=== PATIENT | male | born 1960 | race Caucasian/White ===

== ENCOUNTER 2024-01-11 07:25 | Day surgery (SDC) | payer OTHER ==
[~2024-01-11 07:25] MED LIST: Sodium Chloride 0.9% 10 ML Syringe FLUSH PRN; Sodium Chloride 0.9% 10 ML Syringe FLUSH SCH
[2024-01-11] MEDS ORDERED: ceFAZolin 2 GM Vial ONE (07:32)
[2024-01-11] MEDS ORDERED: fentaNYL 100 MCG/2 ML SDV ONE (07:32)
[2024-01-11] MEDS ORDERED: Ondansetron 4 MG/2 ML SDV ONE (07:32)
[2024-01-11] MEDS ORDERED: Ketorolac 30 MG/ML SDV ONE (07:32)
[2024-01-11] MEDS ORDERED: Propofol 200 MG/20 ML SDV ONE (07:32)
[2024-01-11] MEDS ORDERED: Lactated Ringers 1,000 ML ONE (07:32)
[2024-01-11] MEDS ORDERED: Midazolam 1 MG/ML 2 ML SDV ONE (07:32)
[2024-01-11] MEDS: Lactated Ringers 1,000 ML IV SCH (07:42)
[2024-01-11] MEDS ORDERED: Acetaminophen/HYDROcodone 325-5 MG Tab PO PRN (08:42)
[2024-01-11] MEDS ORDERED: Phenylephrine 1% 10 MG/ML SDV ONE (09:33)
[2024-01-11] MEDS ORDERED: Ondansetron 4 MG/2 ML SDV IVPUSH PRN (09:59)
[2024-01-11] MEDS ORDERED: HYDROmorphone 0.5 MG/0.5 ML Syringe IVPUSH PRN (09:59)
[2024-01-11] MEDS ORDERED: fentaNYL 100 MCG/2 ML SDV IVPUSH PRN (09:59)
[2024-01-11] MEDS: Morphine 8 MG, EPINEPHrine 0.3 MG, Cefuroxime 750 MG, Ketorolac 30 MG, Sodium Chloride ... PRN (10:32)
[2024-01-11] MEDS: Tranexamic Acid 1,000 MG/10 ML Vial ONE (10:32)
[2024-01-11] MEDS: Vancomycin 1 GM SDV ONE (10:32)
== END 2024-01-11 14:37 | disposition home or self-care (01) ==
LOC: JD.SDS 07:25
PROVIDERS: ATTEND Orthopaedic Surgery
DX: M16.12 Unilateral primary osteoarthritis, left hip (principal); I10 Essential (primary) hypertension; J44.9 Chronic obstructive pulmonary disease, unspecified; E78.00 Pure hypercholesterolemia, unspecified; Z87.891 Personal history of nicotine dependence; Z79.899 Other long term (current) drug therapy
CPT/HCPCS: 0055T; 27130; 36415; 73501; 86850; 86900; 86901; 97110; 97161; C1713; C1776; J0171; J0690; J0697; J1885; J2250; J2270; J2371; J2405; J2704; J3010; J3370; J7120; 01214; J3490